=== PATIENT | male | born 1985 | race African-American/Black ===

== ENCOUNTER 2025-04-22 12:39 | Emergency (ER) | payer MEDICAID ==
[~2025-04-22] VITALS: Ht 188 cm; Wt 81.0 kg
[2025-04-22 12:49] VITALS: O2SAT 100
[2025-04-22] MEDS ORDERED: ACET-2708 MT (14:24)
[2025-04-22 14:30] VITALS: TEMP 36.8; O2SAT 100
[2025-04-22 14:42] VITALS: BP 130/92; PULSE 81; RESP 18
[2025-04-22] MEDS: KETOROLAC 30MG/ML VIAL IM ONE (14:42)
== END 2025-04-22 14:45 | disposition home or self-care (01) ==
LOC: ER 12:39
DX: M25.512 Pain in left shoulder (principal); W19.XXXA Unspecified fall, initial encounter; Y93.89 Activity, other specified; Y92.89 Other specified places as the place of occurrence of the external cause; Y99.8 Other external cause status
CPT/HCPCS: 73030; 29240; 96372; 99283; J1885; Z7610; A4565